=== PATIENT | female | born 1985 | race Caucasian/White ===

== ENCOUNTER 2019-10-21 07:49 | Day surgery (SDC) | payer OTHER ==
[2019-10-21 09:11] LABS: PARTIAL THROMBOPLASTIN TIME 29.8 SEC (23.5-35.8); PROTHROMBIN TIME 13.2 SEC (11.4-15.4)
[2019-10-21 11:39] LABS: GLUCOSE,CSF 64 mg/dL (40-70); PROTEIN,CSF 47 mg/dL (12-60)
--- NOTE | 2019-10-21 11:43 | RADIOLOGY REPORT (SQ) ---
EXAM DESCRIPTION: LUMBAR PUNCTURE; FLUORO/NEEDLE PLACEMENT/SPINE COMPLETED DATE/TIME: 10/21/2019 10:26 am REASON FOR STUDY: MS G35 MULTIPLE SCLEROSIS COMPARISON: None. FLUOROSCOPY TIME: 14 seconds 1 images saved to PACS. TECHNIQUE: Fluoroscopic guided lumbar puncture. LIMITATIONS: None. PROCEDURE: After written consent and assessment were obtained, the patient was brought into the fluo roscopy room and placed prone on the table. The patient's lower back was prepped in a sterile fashio n and an entry site was selected under live fluoroscopic guidance. The entry site was anesthetized wi th 1% lidocaine. A 20 gauge needle was advanced through the skin and into the thecal sac at the level of L2-L3. Opening pressure of 24 water units was obtained. Closing pressure of 15 water units was obtained after approximately 9 cc was drained. The needle was removed and a sterile bandage was plac ed of the site. Specimens were sent to the lab for testing. A fluoroscopic spot image was saved to PACS confirming level access. FINDINGS: Clear CSF IMPRESSION: Lumbar puncture under fluoroscopy. No immediate complication. COMMENT: Patient medication list reviewed: Yes- Quality ID# [id number]:Eligible professional attests to doc umenting in the medical record they obtained, updated, or reviewed the patient's current medications. . Quality ID 145: Final reports for procedures using fluoroscopy that document radiation exposure anatoliy caro, or exposure time and number of fluorographic images (if radiation exposure indices are not avail able) TECHNICAL DOCUMENTATION: JOB ID: [id number] [employer]- All Rights Reserved Reading location - IP/workstation name: [email or web address]
[2019-10-21 12:30] LABS: APPEARANCE ALL TUBES CLEAR; COLOR ALL TUBES COLORLESS; CSF TOTAL VOLUME 8.5 CC; CSF TUBE NUMBER 3; RED BLOOD CELL,CSF 0 /uL (0-10); VOLUME TUBE 4 2.5 CC; WHITE BLOOD CELL,CSF 2 /uL (0-5)
[2019-10-21 12:35] VITALS: BP 117/72
[2019-10-26 10:37] LABS: ALBUMIN CSF 22 mg/dL (11-48); IGG/ALBUMIN RATIO CSF 0.15 (0.00-0.25); IMMUNOGLOBULIN G CSF 3.2 mg/dL (0.0-8.6); IMMUNOGLOBULIN G SERUM 1232 mg/dL (700-1600)
== END 2019-10-21 12:30 | disposition home or self-care (01) ==
LOC: RAD 07:49
PROVIDERS: ATTEND Specialist
DX: G35 Multiple sclerosis (principal); Z79.899 Other long term (current) drug therapy
CPT/HCPCS: 36415; 62270; 77003; 82784; 82945; 83916; 84157; 85610; 85730; 87070; 87205; 89050